=== PATIENT | female | born 1980 | race Caucasian/White ===

== ENCOUNTER → 2020-07-01 | Outpatient (CLI) | payer OTHER | LOC: M LABSMTC 08:35 | PROVIDERS: ATTEND Anesthesiology | DX: Z01.812 Encounter for preprocedural laboratory examination (principal); Z20.828 Contact with and (suspected) exposure to other viral communicable diseases | CPT/HCPCS: C9803; U0003 ==

== ENCOUNTER 2020-07-06 13:54 | Day surgery (SDC) | payer OTHER ==
[~2020-07-06] VITALS: Ht 170.2 cm; Wt 70.3 kg
[~2020-07-06 13:54] MED LIST: NS 1,000 ML IV ONE
[2020-07-06] MEDS ORDERED: propofoL 200 MG/20 ML VIAL As Ordered ONE (15:10)
[2020-07-06] MEDS ORDERED: fentaNYL 100 MCG/2 ML INJECTION (J3010) As Ordered ONE (15:10)
[2020-07-06] MEDS ORDERED: LIDOCAINE 2% 100MG/5ML SDV (FOR ANES.) As Ordered ONE (15:10)
[2020-07-06 16:59] VITALS: BP 145/92
--- NOTE | 2020-07-12 11:37 | ROOR ---
Patient Name: Rosa Elena Long Procedure Date: 07/06/2020 11:35 AM Date of : 1980 Age: 40 Room: [facility] Gender: Female Note Status: Finalized Procedure: Upper GI endoscopy Indications: Dysphagia, Heartburn Providers: Kennedy BLAS MD Referring MD: APOORVA FUNK DO Requesting Provider: Medicines: Monitored Anesthesia Care Complications: No immediate complications. Procedure: Pre-Anesthesia Assessment: - The heart rate, respiratory rate, oxygen saturations, blood pressure, adequacy of pulmonary ventilation, and response to care were monitored throughout the procedure. The Endoscope was introduced through the mouth, and advanced to the second part of duodenum. The upper GI endoscopy was accomplished without difficulty. The patient tolerated the procedure well. Findings: The esophagus was normal. The stomach was normal. The examined duodenum was normal. Four biopsies were obtained in the upper third of the esophagus and in the middle third of the esophagus with cold forceps for evaluation of eosinophilic esophagitis. Impression: - Normal esophagus. - Normal stomach. - Normal examined duodenum. - Four biopsies were obtained in the upper third of the esophagus and in the middle third of the esophagus. Recommendation: - Observe patient's clinical course. - Follow an antireflux regimen. - Continue present medications. Kennedy Blas MD Kennedy BLAS MD 07/06/2020 4:07:15 PM Electronically signed by Kennedy BLAS MD Number of Addenda: 0 Note Initiated On: 07/06/2020 11:35 AM Estimated Blood Loss: Estimated blood loss: none.
--- NOTE | 2020-07-12 11:37 | ROOR ---
Patient Name: Rosa Elena Long Procedure Date: 07/06/2020 11:35 AM Date of : 1980 Age: 40 Room: [id number] Gender: Female Note Status: Finalized Procedure: Colonoscopy Indications: High risk colon cancer surveillance: Personal history of colonic polyps, High risk colon cancer surveillance: Personal history of sessile serrated colon polyp (less than 10 mm in size) with no dysplasia, Incidental - Irritable bowel syndrome with constipation Providers: Kennedy BLAS MD Referring MD: APOORVA FUNK DO Requesting Provider: Medicines: Monitored Anesthesia Care Complications: No immediate complications. Procedure: Pre-Anesthesia Assessment: - The heart rate, respiratory rate, oxygen saturations, blood pressure, adequacy of pulmonary ventilation, and response to care were monitored throughout the procedure. The Colonoscope was introduced through the anus and advanced to 10 cm into the ileum. The colonoscopy was performed without difficulty. The patient tolerated the procedure well. The quality of the bowel preparation was good. Findings: The perianal and digital rectal examinations were normal. Three sessile polyps were found in the hepatic flexure and ascending colon. The polyps were diminutive in size. These polyps were removed with a cold snare. Resection and retrieval were complete. A 4 mm polyp was found in the anus. The polyp was sessile. The polyp was removed with a cold snare. Resection and retrieval were complete. Small Internal Hemorrhoids. The exam was otherwise without abnormality on direct and retroflexion views. Impression: - Three diminutive polyps at the hepatic flexure and in the ascending colon, removed with a cold snare. Resected and retrieved. - One 4 mm polyp at the anus, removed with a cold snare. Resected and retrieved. - Small Internal Hemorrhoids. - The examination was otherwise normal on direct and retroflexion views. Recommendation: - Repeat colonoscopy in 3 years for surveillance. Kennedy Blas MD Kennedy BLAS MD 07/06/2020 4:32:23 PM Electronically signed by Kennedy BLAS MD Number of Addenda: 0 Note Initiated On: 07/06/2020 11:35 AM Estimated Blood Loss: Estimated blood loss: none.
== END 2020-07-06 17:11 | disposition home or self-care (01) ==
LOC: M OPP 13:54
PROVIDERS: ATTEND Internal Medicine Gastroenterology
DX: Z12.11 Encounter for screening for malignant neoplasm of colon (principal); Z86.010 Personal history of colon polyps; K63.5 Polyp of colon; K62.0 Anal polyp; R13.10 Dysphagia, unspecified; R12 Heartburn; Z88.6 Allergy status to analgesic agent; Z79.899 Other long term (current) drug therapy
CPT/HCPCS: 43239; 45385; 88305; J3010

== ENCOUNTER → 2020-09-30 | Outpatient (CLI) | payer OTHER ==
[~2020-09-30] MED LIST changes: +ACET325C5 PO; +BENA25CA4 PO; -NS 1,000 ML IV ONE; +PANT40TA29
== END ==
LOC: M LABSMTC 09:29
PROVIDERS: ATTEND Anesthesiology
DX: Z01.812 Encounter for preprocedural laboratory examination (principal); Z20.828 Contact with and (suspected) exposure to other viral communicable diseases

== ENCOUNTER 2020-10-05 09:11 | Day surgery (SDC) | payer OTHER ==
[~2020-10-05] VITALS: Ht 170.2 cm; Wt 77.0 kg
[~2020-10-05 09:11] MED LIST changes: +LR 1,000 ML IV ONE
[2020-10-05] MEDS ORDERED: PROAAER10 INH (10:46)
[2020-10-05] MEDS ORDERED: dexameTHASONE 4 MG/ML 1ML VIAL (J1100 PER 1MG) IV ONE (11:00)
[2020-10-05] MEDS ORDERED: EPINEPHrine 1MG/ML INJ 30ML MD-VIAL As Ordered ONE ×2 (11:20→12:37)
[2020-10-05] MEDS ORDERED: METHYLENE BLUE 0.5% (5MG/ML) 10 ML AMP (PROVAYBLUE) As Ordered ONE (11:20)
[2020-10-05] MEDS ORDERED: LIDOCAINE W/EPINEPHRINE 1% 20ML VIAL As Ordered ONE (11:20)
[2020-10-05] MEDS ORDERED: dexameTHASONE 4 MG/ML 1ML VIAL (J1100 PER 1MG) As Ordered ONE (11:48)
[2020-10-05] MEDS ORDERED: SUGAMMADEX SODIUM 500 MG/5 ML VIAL (BRIDION) As Ordered ONE (11:57)
[2020-10-05] MEDS ORDERED: METOCLOPRAMIDE INJ 10MG/2ML VIAL (J2765 PER 1) As Ordered ONE (11:57)
[2020-10-05] MEDS ORDERED: fentaNYL 100 MCG/2 ML INJECTION (J3010) As Ordered ONE ×2 (11:57→12:11)
[2020-10-05] MEDS ORDERED: ONDANSETRON 4MG/2ML VIAL As Ordered ONE (11:57)
[2020-10-05] MEDS ORDERED: MIDAZOLAM INJ 2MG/2ML VIAL (J2250 PER 1MG) As Ordered ONE (11:57)
[2020-10-05] MEDS ORDERED: propofoL 200 MG/20 ML VIAL As Ordered ONE ×2 (11:57→12:25)
[2020-10-05] MEDS ORDERED: ROCURONIUM BROMIDE 50 MG/5 ML VIAL As Ordered ONE (11:57)
[2020-10-05] MEDS ORDERED: LABETALOL 100MG/20ML VIAL As Ordered ONE ×2 (12:40→13:22)
[2020-10-05] MEDS ORDERED: SODIUM CHLORIDE 0.9% NASAL GEL 15GM (AYR) As Ordered ONE (12:42)
[2020-10-05 13:10] VITALS: BP 180/110
[2020-10-05] MEDS ORDERED: PERCOCET 5MG/325MG TAB As Ordered ONE (13:44)
[2020-10-05] MEDS ORDERED: METOCLOPRAMIDE INJ 10MG/2ML VIAL (J2765 PER 1) IV PRN (14:30)
[2020-10-05] MEDS ORDERED: fentaNYL 100 MCG/2 ML INJECTION (J3010) IV PRN (14:30)
[2020-10-05] MEDS ORDERED: HYDROMORPHONE HCL 0.5 MG/ 0.5 ML SYRINGE (J1170 PER 1) IV PRN (14:30)
[2020-10-05] MEDS ORDERED: ONDANSETRON 4MG/2ML VIAL IV PRN (14:30)
[2020-10-05] MEDS ORDERED: LR 1,000 ML IV SCH ×2 (14:30→15:15)
[2020-10-05] MEDS ORDERED: LABETALOL 100MG/20ML VIAL IV SCH (14:30)
[2020-10-05] MEDS ORDERED: PERCOCET 5MG/325MG TAB PO PRN (14:30)
[2020-10-05] MEDS ORDERED: AUGMENTIN 875 MG TAB PO ONE (15:15)
[2020-10-05 17:28] VITALS: BP 127/71
== END 2020-10-05 17:30 | disposition home or self-care (01) ==
LOC: M SDC 09:11
PROVIDERS: ATTEND Otolaryngology
DX: J34.2 Deviated nasal septum (principal); J34.3 Hypertrophy of nasal turbinates; J45.909 Unspecified asthma, uncomplicated; Z79.51 Long term (current) use of inhaled steroids; Z79.899 Other long term (current) drug therapy; Z88.8 Allergy status to other drugs, medicaments and biological substances
CPT/HCPCS: 30140; 30520; 81025; 88300; J1100; J2250; J2405; J2765; J3010; Q9968

== ENCOUNTER → 2022-12-08 | Outpatient (CLI) | payer BC, OTHER ==
[~2022-12-08] MED LIST changes: +BUDE10.2 INH; +DOCU100C16 PO; -LR 1,000 ML IV ONE; +OMEP-173 PO; +PROA1AER2 INH; +PROAAER10 INH
== END ==
LOC: M LABSMTC 11:16
PROVIDERS: ATTEND Anesthesiology
DX: Z01.812 Encounter for preprocedural laboratory examination (principal); Z11.52 Encounter for screening for COVID-19

== ENCOUNTER 2022-12-13 11:09 | Day surgery (SDC) | payer OTHER ==
[~2022-12-13] VITALS: Ht 165.1 cm; Wt 85.7 kg
[~2022-12-13 11:09] MED LIST changes: +NS 1,000 ML IV ONE
[2022-12-13] MEDS ORDERED: propofoL 200 MG/20 ML VIAL As Ordered ONE ×2 (12:54→13:04)
[2022-12-13] MEDS ORDERED: LIDOCAINE 2% 100MG/5ML SDV (FOR ANES.) As Ordered ONE (12:55)
[2022-12-13 14:03] VITALS: BP 148/85
== END 2022-12-13 14:17 | disposition home or self-care (01) ==
LOC: M OPP 11:09
PROVIDERS: ATTEND Internal Medicine Gastroenterology
DX: K64.4 Residual hemorrhoidal skin tags (principal); K64.8 Other hemorrhoids; K62.89 Other specified diseases of anus and rectum; K92.1 Melena; K44.9 Diaphragmatic hernia without obstruction or gangrene; R13.10 Dysphagia, unspecified; K21.9 Gastro-esophageal reflux disease without esophagitis; J45.909 Unspecified asthma, uncomplicated; Z79.51 Long term (current) use of inhaled steroids; Z79.52 Long term (current) use of systemic steroids; Z79.899 Other long term (current) drug therapy; Z88.6 Allergy status to analgesic agent; Z80.3 Family history of malignant neoplasm of breast; Z80.42 Family history of malignant neoplasm of prostate; Z86.19 Personal history of other infectious and parasitic diseases

== ENCOUNTER → 2023-05-20 | Day surgery (SDC) | payer OTHER ==
[~2023-05-20] VITALS: Ht 167.6 cm; Wt 84.2 kg
[~2023-05-20] MED LIST changes: +ALBUTEROL SULFATE 2.5MG/0.5ML INH NEB SOLN NEB ONE; +FAMO20TA PO; +GLYCOPYRROLATE INJ 0.2 MG/ML 2 ML VIAL As Ordered ONE; +LIDOCAINE 2% 100MG/5ML SDV (FOR ANES.) As Ordered ONE; +OMEP40CA4 PO; +TREL1AER INH; +propofoL 200 MG/20 ML VIAL As Ordered ONE
[2023-05-20 14:39] VITALS: TEMP 99.2
[2023-05-20 15:33] VITALS: BP 139/92; O2SAT 100
== END | disposition home or self-care (01) ==
LOC: M OPP 13:36
PROVIDERS: ATTEND Internal Medicine Gastroenterology
DX: K44.9 Diaphragmatic hernia without obstruction or gangrene (principal); R13.10 Dysphagia, unspecified; Z79.1 Long term (current) use of non-steroidal anti-inflammatories (NSAID); Z79.51 Long term (current) use of inhaled steroids; Z88.6 Allergy status to analgesic agent

== ENCOUNTER 2023-08-07 14:27 | Outpatient (RCR) | payer OTHER ==
[~2023-08-07 14:27] MED LIST changes: -ALBUTEROL SULFATE 2.5MG/0.5ML INH NEB SOLN NEB ONE; -GLYCOPYRROLATE INJ 0.2 MG/ML 2 ML VIAL As Ordered ONE; -LIDOCAINE 2% 100MG/5ML SDV (FOR ANES.) As Ordered ONE; -NS 1,000 ML IV ONE; -propofoL 200 MG/20 ML VIAL As Ordered ONE
== END 2023-09-02 ==
LOC: M ST 14:27
PROVIDERS: ATTEND Otolaryngology
DX: R49.0 Dysphonia (principal)

== ENCOUNTER 2023-09-22 08:15 | Outpatient (RCR) | payer OTHER | END 2023-10-02 | LOC: M ST 08:15 | PROVIDERS: ATTEND Otolaryngology | DX: R49.8 Other voice and resonance disorders (principal) ==

== ENCOUNTER 2023-10-21 09:52 | Outpatient (RCR) | payer OTHER | END 2023-11-02 | LOC: M ST 09:52 | PROVIDERS: ATTEND Otolaryngology | DX: R49.0 Dysphonia (principal) ==

== ENCOUNTER 2023-11-11 13:13 | Outpatient (RCR) | payer OTHER ==
[~2023-11-11 13:13] MED LIST changes: -E-Z-GAS II EFFERVESCENT PACKET (SODIUM BICARB./CITRIC ACID/SIMETHICONE) As Ordered ONE; -E-Z-HD 98% w/w 340GM SUSP BTL As Ordered ONE; -E-Z-PAQUE 96% w/w SUSP 176GM BTL As Ordered ONE
== END 2023-12-03 ==
LOC: M ST 13:13
PROVIDERS: ATTEND Otolaryngology
DX: R49.0 Dysphonia (principal)

== ENCOUNTER → 2023-11-11 | Outpatient (CLI) | payer OTHER ==
[~2023-11-11] MED LIST changes: +E-Z-GAS II EFFERVESCENT PACKET (SODIUM BICARB./CITRIC ACID/SIMETHICONE) As Ordered ONE; +E-Z-HD 98% w/w 340GM SUSP BTL As Ordered ONE; +E-Z-PAQUE 96% w/w SUSP 176GM BTL As Ordered ONE
== END ==
LOC: M RAD 08:40
PROVIDERS: ATTEND Surgery
DX: K21.9 Gastro-esophageal reflux disease without esophagitis (principal)

== ENCOUNTER 2024-01-08 09:45 | Outpatient (RCR) | payer OTHER | END 2024-02-01 | LOC: M ST 09:45 | PROVIDERS: ATTEND Otolaryngology | DX: M62.89 Other specified disorders of muscle (principal); R49.0 Dysphonia ==

== ENCOUNTER 2024-02-02 10:38 | Outpatient (RCR) | payer OTHER | END 2024-03-02 | LOC: M ST 10:38 | PROVIDERS: ATTEND Otolaryngology | DX: R49.0 Dysphonia (principal) ==

== ENCOUNTER 2024-03-10 14:21 | Outpatient (RCR) | payer OTHER | END 2024-04-02 | LOC: M ST 14:21 | PROVIDERS: ATTEND Otolaryngology | DX: R49.0 Dysphonia (principal); M62.89 Other specified disorders of muscle ==

== ENCOUNTER 2024-04-20 12:25 | Outpatient (RCR) | payer OTHER | END 2024-05-02 | LOC: M ST 12:25 | PROVIDERS: ATTEND Otolaryngology | DX: R49.0 Dysphonia (principal) ==

== ENCOUNTER 2025-03-07 12:34 | Emergency (ER) | payer OTHER ==
[~2025-03-07] VITALS: Ht 167.6 cm; Wt 99.5 kg
[2025-03-07 14:04] LABS: BASO # 0.1 10^3/uL (0.0-0.2); BASO % 1.2 % (0.0-1.0); EOS # 0.1 10^3/uL (0.0-0.5); EOS % 2.2 % (0.0-3.0); HEMATOCRIT 44.2 % (36.0-47.0); HEMOGLOBIN 14.4 g/dl (12.0-15.5); LYMPH # 1.6 10^3/uL (1.5-5.0); LYMPH % 32.3 % (24.0-44.0); MEAN CORPUSCULAR HEMOGLOBIN 29.5 pg (27.0-33.0); MEAN CORPUSCULAR HGB CONC 32.6 g/dl (32.0-36.5); MEAN CORPUSCULAR VOLUME 90.6 fl (80.0-96.0); MONO # 0.5 10^3/uL (0.0-0.8); MONO % 10.5 % (2.0-8.0); NEUTROPHILS # 2.7 10^3/uL (1.5-8.5); NEUTROPHILS % 53.6 % (36.0-66.0); PLATELET COUNT, AUTOMATED 278 10^3/uL (150-450); RED BLOOD COUNT 4.88 10^6/uL (4.00-5.40)
[2025-03-07 14:33] LABS: BLOOD UREA NITROGEN 7 MG/DL (9-23); CALCIUM LEVEL 9.3 MG/DL (8.5-10.1); CARBON DIOXIDE LEVEL 25 MMOL/L (20-31); CHLORIDE LEVEL 108 MMOL/L (98-107); CREATININE FOR GFR 0.74 MG/DL (0.55-1.30); GLOMERULAR FILTRATION RATE > 90.0 (>58); GLUCOSE, FASTING 103 MG/DL (60-100); POTASSIUM SERUM 4.6 MMOL/L (3.5-5.1); SODIUM LEVEL 143 MMOL/L (136-145)
[2025-03-07] MEDS: LIDOCAINE 4% CREAM 5GM (LMX4) TOP ONE (16:00)
[2025-03-07] MEDS: ACETAMINOPHEN 325 MG TAB PO ONE (17:05)
[2025-03-07] MEDS ORDERED: ANUS25SU PR (18:40)
[2025-03-07 19:37] LABS: MAGNESIUM LEVEL 2.1 MG/DL (1.8-2.4)
[2025-03-07 19:38] LABS: CK-MB VALUE MASS < 1.0 NG/ML (<3.6)
[2025-03-07 19:39] LABS: CPK CREATINE PHOSPHOKINASE 76 U/L (34-145); MB/CK RELATIVE INDEX 1.31 (< OR =4)
[2025-03-07 19:41] LABS: FREE T4 1.14 NG/DL (0.89-1.76)
[2025-03-07 19:42] LABS: THYROID STIMULATING HORMONE 0.989 uIU/ML (0.55-4.78)
[2025-03-07] MEDS: ANUSOL HC 25MG SUPP PR STA (20:12)
[2025-03-07 21:00] LABS: CK-MB VALUE MASS < 1.0 NG/ML (<3.6)
[2025-03-07 21:07] LABS: CPK CREATINE PHOSPHOKINASE 72 U/L (34-145); MB/CK RELATIVE INDEX 1.38 (< OR =4)
[2025-03-07 21:31] VITALS: BP 130/81; TEMP 98.2; O2SAT 98
== END 2025-03-07 21:35 | disposition home or self-care (01) ==
LOC: M ED 12:34
DX: K64.8 Other hemorrhoids (principal); R00.1 Bradycardia, unspecified; K21.9 Gastro-esophageal reflux disease without esophagitis; J45.909 Unspecified asthma, uncomplicated; Z88.6 Allergy status to analgesic agent; Z79.1 Long term (current) use of non-steroidal anti-inflammatories (NSAID); Z79.51 Long term (current) use of inhaled steroids; Z79.899 Other long term (current) drug therapy

== ENCOUNTER → 2025-06-03 | Day surgery (SDC) | payer OTHER ==
[~2025-06-03] VITALS: Ht 167.6 cm; Wt 98.4 kg
[~2025-06-03] MED LIST changes: +ACET-907 PO; +ANUS25SU PR; +CHLO125TA PO; +HYDROMORPHONE HCL 0.5 MG/0.5 ML SYRINGE IV PRN; +LOSA100T46 PO; +LR 1,000 ML IV SCH; +MIDAZOLAM INJ 2 MG/2 ML VIAL As Ordered ONE; +MULTTAB61 PO; +ONDANSETRON 4MG 2ML VIAL IV PRN; +ROCURONIUM BROMIDE 50MG/5ML VIAL As Ordered ONE; +SCOPOLAMINE 1MG TRANSDERMAL PATCH TOP ONE; +SUGAMMADEX SODIUM 200 MG/2 ML VIAL As Ordered ONE
[2025-06-03] MEDS: ACETAMINOPHEN 500 MG TAB PO ONE (09:25)
[2025-06-03] MEDS: LIDOCAINE W/EPINEPHrine 1% 20 ML VIAL As Ordered ONE (09:46)
[2025-06-03] MEDS: ceFAZolin SOD 2 GM IV ONCE IV ONE (10:05)
[2025-06-03] MEDS: metroNIDAZOLE 500 MG in IV 1 EA IV ONE (10:35)
[2025-06-03 12:50] VITALS: BP 139/80; TEMP 97.4; O2SAT 99
== END | disposition home or self-care (01) ==
LOC: M SDC 08:21
PROVIDERS: ATTEND Surgery
DX: K64.1 Second degree hemorrhoids (principal); K64.4 Residual hemorrhoidal skin tags; I10 Essential (primary) hypertension; J45.909 Unspecified asthma, uncomplicated; G25.81 Restless legs syndrome; Z79.899 Other long term (current) drug therapy; Z79.51 Long term (current) use of inhaled steroids; Z88.6 Allergy status to analgesic agent; K21.9 Gastro-esophageal reflux disease without esophagitis
CPT/HCPCS: 46260; 81025; 88304; J0665; J0666; J0690; J1836; J2250; J3010